=== PATIENT | female | born 1945 | race Caucasian/White ===

== ENCOUNTER → 2016-11-20 | Outpatient (CLI) | payer OTHER ==
[~2016-11-20] VITALS: Ht 149.9 cm; Wt 74.8 kg
[~2016-11-20] MED LIST: ATORVASTATIN CA40 MG PO; FLOVENT DISKUS1 DIS2 IH; GLUCOSAMINE CH1 EAC6 PO; IBUPROFEN800 MG PO; LEVOTHYROXINE88 MCG PO; MULTIPLE VITAM1 EAC4 PO; VENTOLIN HFA18 GM IH; VITAMIN E1000 UNI1 PO; ZYRTEC10 M2 PO
[2016-11-20 09:24] LABS: INTER. NORMALIZED RATIO 0.9; PROTHROMBIN TIME 10.2 SEC (10.2-12.9)
[2016-11-20 09:26] LABS: PTT 31.3 SEC (25-37)
[2016-11-20 11:06] LABS: MCH 28.5 PG (29.0-34.0); MCHC 32.6 G/DL (30.0-36.0); MCV 87.6 FL (83-99); MEAN PLAT.VOLUME 9.7 uM^3 (9.5-12.4); PLATELET COUNT 257 K/uL (156-360); RBC DIS.WIDTH-CV 13.8 % (11.8-14.6); RBC DIS.WIDTH-SD 44.8 % (39-53); RED BLOOD COUNT 4.45 M/uL (3.80-5.20); WHITE BLOOD COUNT 7.9 K/uL (4.1-10.2)
[2016-11-20 11:49] LABS: ABS NEUTROPHIL COUNT 4.9; ATYPICAL LYMPHOCYTE 5.3 %; BASOPHILS 1.8 %; EOSINOPHIL ABS CT 0.4; EOSINOPHILS 5.3 % (0-5.0); INSTRUMENT ABS NEUTROPHIL CT 4.5 K/uL; LYMPHOCYTES 19.5 % (15.0-45.0); MYELOCYTES 0.9 %; PLAT.SUFFICIENCY ADEQUATE; SEG.NEUTROPHILS 61.9 % (46.0-76.0); SMUDGE CELLS 8.8
[2016-11-23 15:13] LABS: Flow Clinical Information NOT PROVIDED (()); Flow Number of Markers 22 (()); Flow Spec Viability 97 % (()); Flow Specimen Type BONE MARROW (())
== END | disposition home or self-care (01) ==
LOC: OPR 08:22 → EDSTATUS 09:00 → OPR 09:00
PROVIDERS: Internal Medicine Medical Oncology
DX: C85.99 Non-Hodgkin lymphoma, unspecified, extranodal and solid organ sites (principal)
CPT/HCPCS: 77012; 85007 GA; 85027 GA; 85610; 85730; 85999; 88184 90; 88185 90; 88189 90; J3010

== ENCOUNTER 2016-12-25 11:01 | Day surgery (SDC) | payer OTHER ==
[~2016-12-25] VITALS: Ht 149.9 cm; Wt 74.4 kg
[~2016-12-25 11:01] MED LIST changes: +NON-ASPIRIN PA500 M1 PO
[2016-12-25 11:44] VITALS: BP 158/93
[2016-12-25 12:11] LABS: EOSINOPHIL (%) 2.8 % (0-5); EOSINOPHIL COUNT 0.2 K/uL (0-0.3); HEMATOCRIT 38.9 % (36.0-46.0); IMMATURE GRANULOCYTE (%) 0.3 % (0.0-0.7); INSTRUMENT ABS NEUTROPHIL CT 4.8 K/uL; LYMPHOCYTE COUNT 1.9 K/uL (1.0-2.8); MCH 28.5 PG (29.0-34.0); MCHC 32.6 G/DL (30.0-36.0); MCV 87.4 FL (83-99); MEAN PLAT.VOLUME 9.8 uM^3 (9.5-12.4); MONOCYTE (%) 6.9 % (3-12); MONOCYTE COUNT 0.5 K/uL (0-0.8); NEUTROPHIL (%) 64.2 % (45-76); NEUTROPHIL COUNT 4.8 K/uL (1.8-6.4); PLATELET COUNT 251 K/uL (156-360); RBC DIS.WIDTH-CV 13.8 % (11.8-14.6); RBC DIS.WIDTH-SD 44.1 % (39-53); RED BLOOD COUNT 4.45 M/uL (3.80-5.20); WHITE BLOOD COUNT 7.4 K/uL (4.1-10.2)
[2016-12-25 12:37] LABS: ALKALINE PHOSPHATASE 83 IU/L (3-129); ANION GAP 8 MEQ/L (2-14); CHLORIDE 108 MEQ/L (99-109); GFR ESTIMATE (CALCULATED) > 59 mL/min/; GLUCOSE 93 mg/dL (70-99); POTASSIUM 3.9 MEQ/L (3.7-5.4); SAMPLE HEMOLYSIS CHECK 0; SAMPLE ICTERIC CHECK 0; SAMPLE LIPEMIA CHECK 0; SODIUM 141 MEQ/L (136-147); TOTAL BILIRUBIN 0.7 MG/DL (0.0-1.0); UREA NITROGEN (BUN) 16 mg/dL (9-23)
[2016-12-25 15:15] VITALS: BP 144/83
[2016-12-25] MEDS ORDERED: HYDROCODON-ACE1 EAC7 PO (15:25)
[2016-12-25] MEDS ORDERED: COLACE100 MG PO (15:25)
[2016-12-27 11:43] LABS: Flow Number of Markers 22 (()); Flow Spec Viability 58 % (()); Flow Specimen Type LYMPH NODE (())
== END 2016-12-25 15:49 | disposition home or self-care (01) ==
LOC: SDC 11:01 → EDSTATUS 13:42 → 2SOUTH 13:42 → SDC 13:43
PROVIDERS: Thoracic Surgery (Cardiothoracic Vascular Surgery)
DX: R59.0 Localized enlarged lymph nodes (principal); J45.909 Unspecified asthma, uncomplicated; E03.9 Hypothyroidism, unspecified; M19.90 Unspecified osteoarthritis, unspecified site; Z86.010 Personal history of colon polyps; Z80.3 Family history of malignant neoplasm of breast; Z82.49 Family history of ischemic heart disease and other diseases of the circulatory system
CPT/HCPCS: 80053; 85025; 85610; 88184 90; 88185 90; 88189 90; 88305; J0330; J0690; J1100; J1885; J2405; J3010

== ENCOUNTER 2017-02-23 14:19 | Day surgery (SDC) | payer OTHER ==
[~2017-02-23] VITALS: Ht 149.9 cm; Wt 76.0 kg
[~2017-02-23 14:19] MED LIST changes: +CENTRUM SILVER1 EAC3 PO; +COLACE100 MG PO; +HYDROCODON-ACE1 EAC7 PO
== END 2017-02-23 16:45 | disposition home or self-care (01) ==
LOC: CATH 14:19
DX: Z45.2 Encounter for adjustment and management of vascular access device (principal); I87.8 Other specified disorders of veins; C82.90 Follicular lymphoma, unspecified, unspecified site; E78.00 Pure hypercholesterolemia, unspecified; I83.90 Asymptomatic varicose veins of unspecified lower extremity; E07.9 Disorder of thyroid, unspecified
CPT/HCPCS: C1751; C1894; J0690; J1644; J2250; J3010; S0020